=== PATIENT | female | born 1940 | race Caucasian/White ===

== ENCOUNTER → 2023-07-15 08:06 | Outpatient (REF) | payer OTHER, SELFPAY | LOC: RAD 08:06 | PROVIDERS: ATTENDING PHYSICIAN Internal Medicine | DX: Z13.820 Encounter for screening for osteoporosis (principal); M19.90 Unspecified osteoarthritis, unspecified site | CPT/HCPCS: 77080 ==

== ENCOUNTER → 2024-01-18 16:25 | Outpatient (REF) | payer OTHER, SELFPAY | LOC: WDC 16:25 | PROVIDERS: ATTENDING PHYSICIAN Internal Medicine | DX: Z12.31 Encounter for screening mammogram for malignant neoplasm of breast (principal) | CPT/HCPCS: 77063; 77067 ==

== ENCOUNTER 2024-01-27 06:18 | Outpatient (RCR) | payer OTHER, SELFPAY | END 2024-01-27 23:59 | disposition home or self-care (01) | LOC: RPT 06:18 | PROVIDERS: ATTENDING PHYSICIAN Internal Medicine | DX: M25.512 Pain in left shoulder (principal); M79.642 Pain in left hand; M79.641 Pain in right hand; M46.92 Unspecified inflammatory spondylopathy, cervical region; M54.2 Cervicalgia | CPT/HCPCS: 97110; 97162; 97535 ==

== ENCOUNTER 2024-02-24 06:51 | Outpatient (RCR) | payer OTHER, SELFPAY | END 2024-02-24 23:59 | disposition home or self-care (01) | LOC: RPT 06:51 | PROVIDERS: ATTENDING PHYSICIAN Internal Medicine | DX: M25.512 Pain in left shoulder (principal); M79.642 Pain in left hand; M79.641 Pain in right hand; M46.92 Unspecified inflammatory spondylopathy, cervical region; Z73.6 Limitation of activities due to disability; M62.81 Muscle weakness (generalized) | CPT/HCPCS: 97010; 97110; 97112; 97140 ==

== ENCOUNTER → 2024-05-28 14:00 | Outpatient (REF) | payer OTHER, SELFPAY | LOC: RAD 14:00 | PROVIDERS: ATTENDING PHYSICIAN Internal Medicine | DX: M54.12 Radiculopathy, cervical region (principal) | CPT/HCPCS: 72040 ==

== ENCOUNTER → 2024-07-25 14:25 | Outpatient (REF) | payer OTHER, SELFPAY | LOC: MRI 14:25 | PROVIDERS: ATTENDING PHYSICIAN Internal Medicine | DX: M54.12 Radiculopathy, cervical region (principal) | CPT/HCPCS: 72141; 76014; 76015 ==

== ENCOUNTER → 2024-08-27 13:33 | Outpatient (REF) | payer OTHER, SELFPAY | LOC: MRI 13:33 | PROVIDERS: ATTENDING PHYSICIAN Physician Assistant; FAMILY PHYSICIAN Internal Medicine | DX: M54.16 Radiculopathy, lumbar region (principal) | CPT/HCPCS: 72148 ==

== ENCOUNTER 2024-08-28 10:51 | Outpatient (RCR) | payer OTHER, SELFPAY | END 2024-08-28 23:59 | disposition home or self-care (01) | LOC: RPT 10:51 | PROVIDERS: ATTENDING PHYSICIAN Physician Assistant; FAMILY PHYSICIAN Internal Medicine | DX: M79.604 Pain in right leg (principal); M79.605 Pain in left leg; M54.50 Low back pain, unspecified; M16.0 Bilateral primary osteoarthritis of hip; Z73.6 Limitation of activities due to disability; M62.81 Muscle weakness (generalized); R26.2 Difficulty in walking, not elsewhere classified | CPT/HCPCS: 97110; 97162; 97530 ==

== ENCOUNTER → 2024-09-05 13:41 | Outpatient (REF) | payer OTHER, SELFPAY | LOC: RCS 13:41 | PROVIDERS: ATTENDING PHYSICIAN Physical Medicine & Rehabilitation; FAMILY PHYSICIAN Internal Medicine | DX: Z01.818 Encounter for other preprocedural examination (principal) | CPT/HCPCS: 93005 ==

== ENCOUNTER 2024-09-21 06:29 | Outpatient (RCR) | payer OTHER, SELFPAY | END 2024-09-21 23:59 | disposition home or self-care (01) | LOC: RPT 06:29 | PROVIDERS: ATTENDING PHYSICIAN Physician Assistant; FAMILY PHYSICIAN Internal Medicine | DX: M79.604 Pain in right leg (principal); M79.605 Pain in left leg; M54.50 Low back pain, unspecified; M16.0 Bilateral primary osteoarthritis of hip; Z73.6 Limitation of activities due to disability; M54.12 Radiculopathy, cervical region; M62.81 Muscle weakness (generalized); R26.2 Difficulty in walking, not elsewhere classified | CPT/HCPCS: 97010; 97110 ==

== ENCOUNTER 2024-10-12 08:17 | Outpatient (RCR) | payer OTHER, SELFPAY | END 2024-10-16 13:34 | disposition home or self-care (01) | LOC: RPT 08:17 | PROVIDERS: ATTENDING PHYSICIAN Physician Assistant; FAMILY PHYSICIAN Internal Medicine | DX: M79.604 Pain in right leg (principal); M79.605 Pain in left leg; M54.50 Low back pain, unspecified; M16.0 Bilateral primary osteoarthritis of hip; Z73.6 Limitation of activities due to disability; M62.81 Muscle weakness (generalized); R26.2 Difficulty in walking, not elsewhere classified; M54.12 Radiculopathy, cervical region; M50.30 Other cervical disc degeneration, unspecified cervical region | CPT/HCPCS: 97010; 97110; 97112; 97140 ==

== ENCOUNTER → 2024-10-12 15:05 | Outpatient (REF) | payer OTHER, SELFPAY | LOC: RAD 15:05 | PROVIDERS: ATTENDING PHYSICIAN Internal Medicine | DX: R60.0 Localized edema (principal) | CPT/HCPCS: 93971 ==

== ENCOUNTER → 2025-02-12 07:45 | Outpatient (REF) | payer OTHER, SELFPAY | LOC: EMG 07:45 | PROVIDERS: ATTENDING PHYSICIAN Physician Assistant; FAMILY PHYSICIAN Internal Medicine | DX: R20.2 Paresthesia of skin (principal); R20.0 Anesthesia of skin | CPT/HCPCS: 95886; 95909 ==

== ENCOUNTER → 2025-03-14 13:43 | Outpatient (REF) | payer OTHER, SELFPAY | LOC: RCS 13:43 | PROVIDERS: ATTENDING PHYSICIAN Internal Medicine Cardiovascular Disease; FAMILY PHYSICIAN Internal Medicine | DX: I47.20 Ventricular tachycardia, unspecified (principal) | CPT/HCPCS: 93306 ==